=== PATIENT | male | born 1975 | race African-American/Black ===

== ENCOUNTER 2017-01-24 14:40 | Emergency (ER) | payer SELFPAY ==
[2017-01-24 15:24] VITALS: BP 150/80
--- NOTE | 2017-01-24 15:37 | EDM.PDOC ---
ED HPI ENT - General Chief Complaint: ENT Problem Stated Complaint: RT SIDE EAR ACHE Time Seen by Provider: 01/24/17 15:28 Source: Reports: Patient, RN notes reviewed History Limitations: Reports: No limitations - History of Present Illness INITIAL COMMENTS - FREE TEXT/NARRATIVE: 41-year-old gentleman presents to the emergency department today complaining right ear pain states had this about 4 days denies any fevers or drainage - Related Data Allergies/ADRs: Allergies Allergy/AdvReac Type Severity Reaction Status Date / Time No Known Allergies Allergy Verified 01/24/17 15:22 Home Meds: Home Meds NK [No Known Home Meds] 01/24/17 [History] Past Medical History - Infectious Disease History Infectious Disease History: Reports: Chicken pox, Shingles Social & Family History - Tobacco Use Smoking Status *Q: Current Every Day Smoker Years of Tobacco use: 20 Packs/Tins Daily: 0.5 - Caffeine Use Caffeine Use: Reports: Coffee - Recreational Drug Use Recreational Drug Use: No ED ROS ENT - Review of Systems Review Of Systems: See Below Constitutional: Denies: fever HEENT: Reports: Ear pain. Denies: Ear discharge Respiratory: Reports: no symptoms Cardiovascular: Reports: No symptoms ED EXAM, ENT - Physical Exam Exam: See Below Text/Narrative:: examination of the left ear tympanic membranes clear and rodriguez landmarks and light reflex are present, examination of the right ear is blocked by cerumen Exam Limited By: No limitations General Appearance: alert, WD/WN, no apparent distress Course - Vital Signs Last Recorded V/S: Last Vital Signs Temp 97.7 F 01/24/17 15:23 Pulse 61 01/24/17 15:23 Resp 16 01/24/17 15:23 BP 150/80 H 01/24/17 15:23 Pulse Ox 97 01/24/17 15:23 - Orders/Labs/Meds Meds: Medications Discontinued Medications Generic Name Dose Route Start Last Admin Trade Name Freq PRN Reason Stop Dose Admin Lidocaine HCl 4 ml 01/24/17 16:45 01/24/17 16:46 Xylocaine 4% Top Soln TOP 01/24/17 16:46 4 ml ONETIME ONE Administration Departure - Departure Time of Disposition: 17:08 Disposition: Home, Self-Care 01 Condition: good Clinical Impression: Impacted cerumen of right ear Otitis externa Qualifiers: Otitis externa type: unspecified type Laterality: right Chronicity: acute Qualified Code(s): H60.501 - Unspecified acute noninfective otitis externa, right ear Forms: ED Department Discharge Additional Instructions: take full course of antibiotics, Please followup with your primary care provider in [5-7 days if not better, please call return to the emergency department with worsening of symptoms. - Assessment/Plan Plan: Assessment Acuity = acute Site and laterality = right ear cerumen impaction Etiology = excess cerumen Manifestations = pain Location of injury = home Lab values = none Plan he had good improvement with his hearing however the cerumen impaction was difficult to remove the canal is swollen with erythema concern for development of otitis externa therefore he'll be placed on antibiotics of Corticosporin otic , follow up with primary care in 5-7 days if not improved Patient was in agreement with the plan all questions were answered, they were instructed to return to the emergency department or call for worsening symptoms. This note was dictated using [employer] voice recognition software please call with any questions.
[2017-01-24] MEDS ORDERED: Lidocaine 4% Top Soln 4 ML LTA Syringe TOP ONE (16:29)
[2017-01-24] MEDS ORDERED: Lidocaine 4% Top Soln 50 ML Bottle TOP ONE (16:45)
== END 2017-01-24 17:26 | disposition home or self-care (01) ==
LOC: JP.ED 14:40
DX: H60.501 Unspecified acute noninfective otitis externa, right ear (principal); F17.210 Nicotine dependence, cigarettes, uncomplicated
CPT/HCPCS: 99283; A9270